=== PATIENT | male | born 1970 | race Caucasian/White ===

== ENCOUNTER 2022-04-22 14:11 | Outpatient (CLI) | payer OTHER, SELFPAY ==
[2022-04-22 14:26] LABS: Albumin* 4.5 g/dL (3.3-5.0)
[2022-04-22 14:27] LABS: Chloride* 103 mmol/L (96-114); Potassium* 5.1 mmol/L (3.6-5.1); Sodium* 140 mmol/L (135-149)
[2022-04-22 14:29] LABS: Aspartate Amino Transferase* 31 U/L (12-35); Bilirubin Total* 0.6 mg/dL (0.1-1.5); Carbon Dioxide* 31 mmol/L (20-32); Cholesterol* 188 mg/dL (90-199); Creatinine* 0.9 mg/dL (0.5-1.5); Estimated Glomerular Filt Rate 103 ml/min; Total Protein* 7.5 g/dL (6.0-8.3)
[2022-04-22 14:30] LABS: Alanine Aminotransferase* 56 U/L (4-50); Alkaline Phosphatase* 72 U/L (40-150); Blood Urea Nitrogen* 15 mg/dL (7-30); Calcium* 9.2 mg/dL (8.4-10.6); Glucose* 108 mg/dL (60-115); Triglycerides* 159 mg/dL (40-149)
[2022-04-22 14:31] LABS: HDL Cholesterol* 62 mg/dL (>=40); LDL Cholesterol Calculated 94 mg/dL (<100)
== END 2022-04-22 14:12 | disposition home or self-care (01) ==
PROVIDERS: PCP Family Medicine; Visit Provider Family Medicine
DX: E78.00 Pure hypercholesterolemia, unspecified (principal)
CPT/HCPCS: 80053; 80061

== ENCOUNTER 2022-08-28 09:57 | Outpatient (CLI) | payer OTHER, SELFPAY | END 2022-08-28 09:58 | disposition home or self-care (01) | LOC: NFLDREF 09-01 07:32 | PROVIDERS: PCP Family Medicine; Referring Provider Family Medicine; Visit Provider Family Medicine | DX: Z00.00 Encounter for general adult medical examination without abnormal findings (principal); E78.00 Pure hypercholesterolemia, unspecified; R79.89 Other specified abnormal findings of blood chemistry; Z12.5 Encounter for screening for malignant neoplasm of prostate | CPT/HCPCS: 80061; 80076; 84153 ==

== ENCOUNTER 2023-05-20 10:27 | Outpatient (CLI) | payer OTHER, SELFPAY | END 2023-05-20 10:28 | disposition home or self-care (01) | PROVIDERS: PCP Family Medicine; Visit Provider Family Medicine | DX: Z00.00 Encounter for general adult medical examination without abnormal findings (principal); E78.00 Pure hypercholesterolemia, unspecified; R79.89 Other specified abnormal findings of blood chemistry | CPT/HCPCS: 80053; 80061; G0103 ==

== ENCOUNTER 2023-09-03 09:52 | Outpatient (CLI) | payer OTHER, SELFPAY | END 2023-09-03 09:53 | disposition home or self-care (01) | LOC: NFLDREF 09-07 15:45 | PROVIDERS: PCP Family Medicine; Referring Provider Family Medicine; Visit Provider Family Medicine | DX: R97.20 Elevated prostate specific antigen [PSA] (principal) | CPT/HCPCS: 84153; 84154 ==

== ENCOUNTER 2023-09-16 08:35 | Emergency (ER) | payer OTHER, SELFPAY ==
[2023-09-16 08:41] VITALS: BP 125/78; PULSE 96; RESP 18; TEMP 36.6; O2SAT 96; BMI 31.0
--- NOTE | 2023-09-16 09:24 | CRLHL7_ITS ---
For Patients: As a result of the Century Cures Act, medical imaging exams and procedure reports are released immediately into your electronic medical record. You may view this report before your referring provider. If you have questions, please contact your health care provider. INDICATION: Left lower quadrant pain. History of diverticulitis. TECHNIQUE: CT abdomen and pelvis acquired with 116 cc Isovue 370 IV contrast. COMPARISON: None. FINDINGS: Lower chest: Calcified right hilar lymph node. Mild bibasilar opacities, likely atelectasis. Liver: Unremarkable. Normal in size and attenuation. No suspicious masses. Gallbladder and bile ducts: Unremarkable. No stones or inflammation. No biliary dilatation. Pancreas: Unremarkable. No mass or inflammation. Spleen: Unremarkable. Normal in size. No masses. Adrenal glands: Unremarkable. No nodules. Kidneys: Unremarkable. No suspicious masses, stones, or hydronephrosis. GI tract and peritoneal: Stomach and small bowel normal. Normal appendix. Colonic diverticulosis. Short segment of colonic wall thickening and moderate pericolonic inflammatory change centered focally inflamed diverticula in the lower descending colon, compatible with acute diverticulitis. No organized fluid collection. No free intraperitoneal air. Vasculature: Abdominal aorta is normal in caliber. Mesenteric arteries are patent. Lymph nodes: No lymphadenopathy. Peritoneum/Abdominal Wall: Unremarkable. No sign of mass or infiltration. No free air or significant free fluid. Pelvis: Unremarkable. Bones: Unremarkable for age. IMPRESSION: Acute diverticulitis of the lower descending colon. Moderate pericolonic inflammatory change, but no organized fluid collection or free intraperitoneal air. Please note that all CT scans at this facility use dose modulation, iterative reconstruction, and/or weight-based dosing when appropriate to reduce radiation dose to as low as reasonably achievable. Dictated by Russ Branham MD @ 09/16/2023 10:40:07 AM (Electronically Signed)
--- NOTE | 2023-09-16 09:26 | ED_ITS ---
HPI - Abdominal Pain General Chief Complaint: Abdominal Pain Stated Complaint: Diverticulitis Time Seen by Provider: 09/16/23 09:10 History of Present Illness HPI narrative: This 53-year-old male comes in reporting left lower quadrant pain for the past couple months. It is worsened significantly recently. He states that he did not sleep well last night due to pain. His pain is worse with movement and less when remaining still. He has a history of diverticulitis and suspects that this is what is recurring. He arrives here with normal vital signs. Related Data Previous Rx's ?Medication ?Instructions ?Recorded albuterol sulfate 90 mcg/actuation 2 puff inhalation Q6H PRN 05/20/23 aerosol inhaler shortness of breath or wheezing #6.7 grams fluticasone 250 mcg-salmeterol 50 1 inh inhalation BID #3 ea 05/20/23 mcg/dose blistr powdr for inhalation (Advair Diskus) atorvastatin 10 mg tablet 10 mg PO QHS #90 tabs 05/22/23 amoxicillin 875 mg-potassium 1 tab PO BID #20 tabs 09/16/23 clavulanate 125 mg tablet ketorolac 10 mg tablet 10 mg PO Q8H 5 days #15 tabs 09/16/23 Allergies Allergy/AdvReac Type Severity Reaction Status Date / Time No Known Drug Allergies Allergy Verified 09/16/23 10:13 Review of Systems Status of ROS Reports: 10 or more systems reviewed and unremarkable except as noted in History and below Narrative Constitutional: No fevers, no weight gain or loss. Eyes: No discharge. No vision changes. HENT: No congestion, no sore throat, no ear pain. Cardiovascular: No chest pain, no palpitations. Respiratory: No shortness of breath, no wheezes, no cough. Gastrointestinal: No vomiting, no diarrhea. Abdominal pain as stated above. Genitourinary: No dysuria, no hematuria. Musculoskeletal: Normal range of motion. Skin: No rashes, no pruritis. Neurological: No dizziness, weakness, sensory change, speech change. Endo/Heme/Allergies: No bruising or bleeding. No polydipsia. Pysch: no suicidality, no anxiety, no insomnia. All other systems reviewed and are negative. [facility] Medical History (Updated 09/16/23 @ 11:02 by Cole Carson MD) LFT elevation ?R79.89 - Other specified abnormal findings of blood chemistry (ICD-10) Encounter for routine history and physical examination of adult ?Z00.00 - Encounter for general adult medical examination without abnormal findings (ICD-10) Encounter for pre-operative examination ?Z01.818 - Encounter for other preprocedural examination (ICD-10) Surgical History (Updated 05/20/22 @ 18:44 by Daylin Carmen) History of colonoscopy ?Z98.890 - Other specified postprocedural states (ICD-10) Social History Smoking Status: Smoker, status unknown Little interest or pleasure in doing things: not at all Feeling down, depressed, or hopeless: not at all Exam Narrative: Exam Narrative: Constitutional: Well-developed, well-nourished, no acute distress. HEENT: Normocephalic, atraumatic. Neck: Normal range of motion. Nontender. Supple. Heart: Regular. No murmurs. Normal rate. Intact distal pulses. Lungs: Clear to auscultation. No chest discomfort. No wheezes, rhonchi, or rales. Abdomen: Decreased bowel sounds. Pain localized in the left lower quadrant. Mild rebound tenderness. Genitalia: Deferred. Back: No midline tenderness. Normal range of motion. Extremities: Normal range of motion. No injury. Skin: Intact. No rash. Warm. No erythema or pallor. Neurologic: No altered sensation. No weakness. Alert and oriented. Psychiatric: No suicidality. No anxiety or depression. No insomnia. Nursing notes and vitals signs are reviewed. Const: Vital Signs, click to edit/add: Vital Signs - 24 hr 09/16/23 08:41 Temperature 97.8 F Pulse Rate [Right Pulse Oximeter] 96 Respiratory Rate 18 Blood Pressure [Ri ght Upper Arm] 125/78 Pulse Oximetry 96 Oxygen Delivery Me thod Room Air Course Vital Signs Vital signs: Initial Vital Signs Temperature 97.8 F 09/16/23 08:41 Temperature Source Temporal Artery Scan 09/16/23 08:41 Pulse Rate 96 09/16/23 08:41 Respiratory Rate 18 09/16/23 08:41 Blood Pressure 125/78 09/16/23 08:41 Blood Pressure Mean 93 09/16/23 08:41 Blood Pressure Position Sitting 09/16/23 08:41 Pulse Oximetry 96 09/16/23 08:41 Oxygen Delivery Method Room Air 09/16/23 08:41 Vital Signs Temperature 97.8 F 09/16/23 08:41 Pulse Rate 96 09/16/23 08:41 Respiratory Rate 18 09/16/23 08:41 Blood Pressure 125/78 09/16/23 08:41 Pulse Oximetry 96 09/16/23 08:41 Oxygen Delivery Method Room Air 09/16/23 08:41 Temperature 97.8 F 09/16/23 08:41 Pulse Rate 96 09/16/23 08:41 Respiratory Rate 18 09/16/23 08:41 Blood Pressure 125/78 09/16/23 08:41 Pulse Oximetry 96 09/16/23 08:41 Oxygen Delivery Method Room Air 09/16/23 08:41 Medications Administered Medications: Discontinued Medications Generic Name Dose Route Start Last Admin Trade Name Chauq PRN Reason Stop Dose Admin Ketorolac Tromethamine 30 mg 09/16/23 09:24 09/16/23 09:47 Ketorolac 30 Mg/Ml Inj IVP 09/16/23 09:25 30 mg ONCE ONE Administration MDM - Abdominal Pain MDM Narrative Medical decision making narrative: This patient comes in with left lower quadrant abdominal pain that began a couple months ago. He has been waiting in hoping that the pain would resolve. He does have history of diverticulitis and states that these symptoms feel similar to previous episodes. It has now been a couple months and instead he is having more pain and discomfort. He does not report any fevers. An IV was established where he did receive Toradol 30 mg. Labs are acquired and these returned with reassuring findings. CT imaging of the abdomen and pelvis does show diverticulitis that is uncomplicated. I did state to the patient that there is evidence that seems to indicate that for uncomplicated acute diverticulitis antibiotic treatment is not showing an advantage over no treatment with antibiotic. In his case he has had worsening symptoms over the past couple months. There is no evidence of abscess or free air on CT imaging. I did prescribe Augmentin and Toradol. He is okay to be discharged home. Lab Data Labs: Lab Results 09/16/23 Range/Units 09:40 WBC 12.66 H (4.50-11.00) K/uL RBC 4.76 (4.30-5.90) m/uL Hgb 15.2 (13.5-17.5) gm/dL Hct 46.2 (37.0-53.0) % MCV 97 (80-100) fL MCH 32 (26-34) pg MCHC 33 (32-36) gm/dL RDW Coeff of Mary 11.7 (11.5-15.5) % Plt Count 282 (140-440) K/uL Neut % (Auto) 75.2 H (42.0-72.0) % Lymph % (Auto) 14.4 L (20-44) % [place] % (Auto) 9.1 (0.0-11.0) % Eos % (Auto) 0.9 (0.0-7.0) % Baso % (Auto) 0.2 (0.0-3.0) % Neut # (Auto) 9.50 H (1.7-7.0) K/uL Lymph # (Auto) 1.80 (0.90-2.90) K/uL [place] # (Auto) 1.20 H (0.00-0.90) K/UL Eos # (Auto) 0.10 (0.00-0.50) K/uL Baso # (Auto) 0.00 (0.00-0.30) K/uL Abs Immat Gran (auto) 0.00 (0.00-0.30) K/uL Imm/Tot Granulo (auto) 0.2 % Sodium 138 (135-149) mmol/L Potassium 4.4 (3.6-5.1) mmol/L Chloride 105 (96-114) mmol/L Carbon Dioxide 26 (20-32) mmol/L Anion Gap 7 (7-15) mEq/L BUN 11 (7-30) mg/dL Creatinine 0.8 (0.5-1.5) mg/dL Estimated Creat Clear 120.68 Estimated GFR 106 ml/min Glucose 120 H (60-115) mg/dL Calcium 8.7 (8.4-10.6) mg/dL Imaging Data CT scan - abdomen: Radiologist's impression: Acute diverticulitis of the lower descending colon. Moderate pericolonic inflammatory change, but no organized fluid collection or free intraperitoneal air. Discharge Plan Discharge Clinical Impression: Diverticulitis Patient Disposition: Home, Self-Care Condition: Stable Additional Instructions: Take medication as prescribed. Use stool softeners as needed and directed. Follow up with MD or return if worsening symptoms occur. Prescriptions: New ketorolac 10 mg tablet 10 mg PO Q8H 5 Days Qty: 15 0RF amoxicillin-pot clavulanate 875-125 mg tablet 1 tab PO BID Qty: 20 0RF No Action albuterol sulfate 90 mcg/actuation HFA aerosol inhaler 2 puff inhalation Q6H PRN (Reason: shortness of breath or wheezing) Qty: 6.7 12RF fluticasone propion-salmeterol [Advair Diskus] 250-50 mcg/dose blister with device 1 inh inhalation BID Qty: 3 12RF atorvastatin 10 mg tablet 10 mg PO QHS Qty: 90 3RF Follow Up/Referrals: Kyrie Loving MD [Primary Care Provider] - Stand Alone Forms: [facility], [facility] Info Instructions
[2023-09-16] MEDS: KETOROLAC 30 MG/ML inj IVP (09:47)
[2023-09-16 09:54] LABS: Basophils Percent Auto 0.2 % (0.0-3.0); Eosinophils Percent Auto 0.9 % (0.0-7.0); Hematocrit 46.2 % (37.0-53.0); Hemoglobin* 15.2 gm/dL (13.5-17.5); Immature Granulocytes Pct Auto 0.2 %; Lymphocytes Percent Auto 14.4 % (20-44); Mean Corpuscular HGB Conc 33 gm/dL (32-36); Mean Corpuscular Hemoglobin 32 pg (26-34); Mean Corpuscular Volume 97 fL (80-100); Monocytes Percent Auto 9.1 % (0.0-11.0); Neutrophils Percent Auto 75.2 % (42.0-72.0); Platelet Count* 282 K/uL (140-440); RDW Coefficient of Variation % 11.7 % (11.5-15.5); Red Blood Count 4.76 m/uL (4.30-5.90); White Blood Count* 12.66 K/uL (4.50-11.00)
[2023-09-16 09:55] LABS: Slide Review Reflex No
[2023-09-16 10:04] LABS: Chloride* 105 mmol/L (96-114); Potassium* 4.4 mmol/L (3.6-5.1); Sodium* 138 mmol/L (135-149)
[2023-09-16 10:07] LABS: Anion Gap 7 mEq/L (7-15); Carbon Dioxide* 26 mmol/L (20-32); Creatinine* 0.8 mg/dL (0.5-1.5); Est. Creatinine Clearance* 120.68; Estimated Glomerular Filt Rate 106 ml/min
[2023-09-16 10:08] LABS: Blood Urea Nitrogen* 11 mg/dL (7-30); Calcium* 8.7 mg/dL (8.4-10.6); Glucose* 120 mg/dL (60-115)
== END 2023-09-16 11:16 | disposition home or self-care (01) ==
PROVIDERS: Emergency Provider Emergency Medicine Emergency Medical Services; PCP Family Medicine
DX: K52.9 Noninfective gastroenteritis and colitis, unspecified (principal)
CPT/HCPCS: 36415; 74177; 80048; 85025; 96374; 99283; 99284; J1885; Q9967

== ENCOUNTER 2024-06-18 08:45 | Outpatient (CLI) | payer OTHER, SELFPAY | END 2024-06-18 08:46 | disposition home or self-care (01) | PROVIDERS: PCP Family Medicine; Visit Provider Family Medicine | DX: R97.20 Elevated prostate specific antigen [PSA] (principal); E78.00 Pure hypercholesterolemia, unspecified; R53.83 Other fatigue | CPT/HCPCS: 80053; 80061; 84153; 84154; 84270; 84402; 84403 ==

== ENCOUNTER 2025-01-24 11:45 | Outpatient (CLI) | payer BC, SELFPAY | END 2025-01-24 11:46 | disposition home or self-care (01) | LOC: LKVREF 11:47 | PROVIDERS: PCP Family Medicine; Visit Provider Family Medicine | DX: Z01.818 Encounter for other preprocedural examination (principal); C61 Malignant neoplasm of prostate | CPT/HCPCS: 80053 ==